=== PATIENT | male | born 1950 | race African-American/Black ===

== ENCOUNTER 2019-08-31 09:08 | Inpatient (IN) | payer OTHER ==
[2019-08-31 09:44] VITALS: BMI 23.0
--- NOTE | 2019-08-31 09:56 | HP ---
CIWA Score Nausea/Vomitin-Mild Nausea/No Vomiting Muscle Tremors: 3 Anxiety: 3 Agitation: 3 Paroxysmal Sweats: 1-Minimal Palms Moist Orientation: 0-Oriented Tacttile Disturbances: 1-Very Mild Itch/Numbness Auditory Disturbances: 0-None Visual Disturbances: 0-None Headache: 2-Mild CIWA-Ar Total Score: 14 - Admission Criteria OASAS Guidelines: Admission for Medically Managed Detox: Requires at least one of the followin. CIWA greater than 12 2. Seizures within the past 24 hours 3. Delirium tremens within the past 24 hours 4. Hallucinations within the past 24 hours 5. Acute intervention needed for co occurring medical disorder 6. Acute intervention needed for co occurring psychiatric disorder 7. Severe withdrawal that cannot be handled at a lower level of care (continued vomiting, continued diarrhea, abnormal vital signs) requiring intravenous medication and/or fluids 8. Admitting History and Physical - Admission Chief Complaint: i need help to stop drinking alcohol and crack History of Present Illness: this 69 years old male with with alcohol and cocaine dependence,seeking detox, had syncope last detox 21 years ago History Source: Patient Limitations to Obtaining History: No Limitations - Past Medical History PROGRESSIVE CARE NURSE: Yes: CVA, Other (in 2001 left ,weakness left leg,ambulation with cane) Cardiovascular: Yes: HTN Gastrointestinal: Yes: Other (left inguinal hernia) Hepatobiliary: Yes: Hepatitis C (has treatment) Renal/: Yes: BPH Infectious Disease: Yes: HIV (since 1985) Musculoskeletal: Yes: Other (arthitis left knee) - Past Surgical History Past Surgical History: Yes: None - Smoking History Smoking history: Current every day smoker Have you smoked in the past 12 months: Yes Aproximately how many cigarettes per day: 4 - Alcohol/Substance Use Hx Alcohol Use: Yes History of Substance Use: reports: Cocaine - Social History Usual Living Arrangement: Yes: Alone ADL: Independent History of Recent Travel: No Other Social History: this 69 years old male with alcohol and coaine dependence, independent,. 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, ambulation with cane,neuropathy,left inguinal hernia,need detox,also hiv Admission ROS [facility] - HPI Chief Complaint: i need help to stop drinking alcohol and cocaine Allergies/Adverse Reactions: Allergies Allergy/AdvReac Type Severity Reaction Status Date / Time No Known Allergies Allergy Verified 12/08/19 09:33 History of Present Illness: this 69 years old male with alcohol and cocaine dependence seeking detox, withdrawal symptom last detox 21 years ago syncope denied seizure old cva with left leg weakness,ambulation with cane hepatitis c treated hiv since 1985 on meds and has own medication and seen pmd regularly neuropathy weight loss Exam Limitations: No Limitations - Ebola screening Have you traveled outside of the country in the last 21 days: No Have you had contact with anyone from an Ebola affected area: No Have you been sick,other than usual withdrawal symptoms: No Do you have a fever: No - Review of Systems Constitutional: Loss of Appetite, Malaise, Night Sweats, Changes in sleep, Unintentional Wgt. Loss EENT: reports: Nose Congestion Respiratory: reports: No Symptoms reported Cardiac: reports: No Symptoms Reported GI: reports: Nausea, Poor Fluid Intake : reports: No Symptoms Reported Musculoskeletal: reports: Back Pain, Muscle Pain Integumentary: reports: Dryness Neuro: reports: Tremors Endocrine: reports: No Symptoms Reported Hematology: reports: No Symptoms Reported (hiv) Psychiatric: reports: No Sypmtoms Reported, Judgement Intact, Mood/Affect Appropiate, Orientated x3 Other Systems: Reviewed and Negative Patient History - Patient Medical History Hx Anemia: No Hx Asthma: No Hx Chronic Obstructive Pulmonary Disease (COPD): No Hx Cancer: No Hx Cardiac Disorders: No Hx Congestive Heart Failure: No Hx Hypertension: Yes Hx Hypercholesterolemia: Yes Hx Pacemaker: No HX Cerebrovascular Accident: Yes (in 2001 with left leg wekness) Hx Seizures: No Hx Dementia: No Hx Diabetes: No Hx Gastrointestinal Disorders: No Hx Liver Disease: Yes (hepatitis ctreated) Hx Genitourinary Disorders: Yes (bph) Hx Sexually Transmitted Disorders: No Hx Renal Disease (ESRD): No Hx Thyroid Disease: No Hx Human Immunodeficiency Virus (HIV): Yes (since 1985) Hx Hepatitis C: Yes (treated) Hx Depression: No Hx Suicide Attempt: No Hx Bipolar Disorder: No Hx Schizophrenia: No Other Medical History: no suicidal no homicidal - Patient Surgical History Past Surgical History: No - PPD History Previous Implant?: Yes Documented Results: Negative w/o proof Implanted On Prior [facility] Admission?: No PPD to be Administered?: Yes - Smoking Cessation Smoking history: Current every day smoker Have you smoked in the past 12 months: Yes Aproximately how many cigarettes per day: 4 Cigars Per Day: 0 Hx Chewing Tobacco Use: No Initiated information on smoking cessation: Yes 'Breaking Loose' booklet given: 08/31/19 - Substance & Tx. History Hx Alcohol Use: Yes Hx Substance Use: Yes Substance Use Type: Alcohol, Tranquilizers Hx Substance Use Treatment: Yes (detox 21 years ago ) - Substances abused Alcohol Substance route: Oral Frequency: Daily Amount used: 1 PINT OF VODKA, Age of first use: 16 Date of last use: 08/30/19 Crack Substance route: Smoking Frequency: Daily Amount used: $50 Age of first use: 31 Date of last use: 08/30/19 Admission Physical Exam [facility] - Vital Signs Vital Signs: Vital Signs - 24 hr 08/31/19 09:28 Temperature 96.6 F L Pulse Rate 79 Respiratory 18 Rate Blood Pressure 149/91 - Physical General Appearance: Yes: Moderate Distress, Tremorous, Irritable, Anxious HEENTM: Yes: Normal ENT Inspection, TIMBO, Pharynx Normal Respiratory: Yes: Lungs Clear, Normal Breath Sounds, No Respiratory Distress Neck: Yes: Within Normal Limits, Supple, Trachea in good position Breast: Yes: Within Normal Limits Cardiology: Yes: Within Normal Limits, Regular Rhythm, Regular Rate, S1, S2 Abdominal: Yes: Within Normal Limits, Normal Bowel Sounds, Non Tender, Flat, Soft, Other (left inguinal hernia size 5x6 cms,direct ,reducible) Back: Yes: Muscle Spasm Extremities: Yes: Tremors 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 (left leg weaknee post cva), Fully Oriented, Alert Integumentary: Yes: Dry Lymphatic: Yes: Within Normal Limits - Diagnostic (1) Alcohol dependence with uncomplicated withdrawal Current Visit: Yes Status: Acute (2) Syncope Current Visit: Yes Status: Acute (3) Cocaine dependence Current Visit: Yes Status: Acute (4) HIV (human immunodeficiency virus infection) Current Visit: Yes Status: Acute (5) Weight loss Current Visit: Yes Status: Acute (6) Hepatitis C virus infection cured after antiviral drug therapy Current Visit: Yes Status: Acute (7) CVA (cerebral vascular accident) Current Visit: Yes Status: Resolved Qualifiers: Laterality of affected vessel: left (8) Direct left inguinal hernia Current Visit: Yes Status: Acute Cleared for Admission [facility] - Detox or Rehab [facility] Level of Care: Medically Managed (for ativan regimen) Inpatient Rehab Admission - Rehab Decision to Admit Inpatient rehab admission?: No
[2019-08-31] MEDS ORDERED: BISMUTH SUBSALICYLATE 524 MG/30 ML UD PO PRN (13:30)
[2019-08-31] MEDS ORDERED: LORazepam 1 MG TABLET PO PRN (13:30)
[2019-08-31] MEDS ORDERED: ACETAMINOPHEN 325 MG TABLET (FP) PO PRN ×2 (13:30)
[2019-08-31] MEDS ORDERED: MELATONIN 5 MG TABLETS PO PRN (13:30)
[2019-08-31] MEDS ORDERED: METHOCARBAMOL 500 MG TABLET PO PRN (13:30)
[2019-08-31] MEDS ORDERED: NICOTINE POLACRILEX 2 MG GUM BUC PRN (13:30)
[2019-08-31] MEDS ORDERED: IBUPROFEN 400 MG TABLET (FP) PO PRN (13:30)
[2019-08-31] MEDS ORDERED: MAG HYDROX/AL HYDROX/SIMETH 30 ML UNIT-DOSE CUP PO PRN (13:30)
[2019-08-31] MEDS ORDERED: hydrOXYzine PAMOATE 25 MG CAPSULE (FP) PO PRN (13:30)
[2019-08-31] MEDS ORDERED: MAGNESIUM CITRATE 300 ML BOTTLE PO PRN (13:30)
[2019-08-31] MEDS ORDERED: MAGNESIUM HYDROX 2400MG/30ML ORAL SUSPENSION 30 ML CUP PO PRN (13:30)
[2019-08-31] MEDS ORDERED: MENTHOL/PHENOL 1 EACH UD MM PRN (13:30)
[2019-08-31] MEDS: LORazepam 2 MG TABLET PO SCH ×2 (18:03→22:39)
[2019-08-31] MEDS: THIAMINE HCL 100 MG TABLET (FP) PO SCH (22:39)
--- NOTE | 2019-09-01 00:11 | PN ---
[facility] Progress Note Note: MD'S NOTE: CALLED AT ABOUT 12:00AM TO SEE THE PT. WHO FELL ON THE FLOOR SUB: HE CLAIMS THAT HE FELT WEAK AND FELL ON THE FLOOR HIT THE HEAD+ OBJ: THE PT. IS CRUZ X 3, NOT DYSPNEIC, NO CYANOSIS, NOT IN DISTRESS V/S: [id number]/111 S/E: IMPLEMENTATION CONSULTANT: NO FOCAL DEFICITS NOTED AT THIS TIME CVS: -JVD, NL HEART SOUNDS, NO MURMURS LUNGS: CLEAR CLINICALLY ABD: SOFT, NT, B.S+ L/E:LEFT EYE BROW REGION: ONE LACERATION OF ABOUT !" NOTED WITH MILD BLEEDING+ IMPRESSION: FALL WITH LACERATED WOUND ON LEFT EYE BROW REGION++ PLANS: FALL PROTOCOL #1 THE PT. WAS SENT TO THE ER. ER-DR. ZEB GAO WAS MADE AWARE OF THE INCIDENT CLOSE MONITORING WILL F/U NEEDED. PROVIDER: ABIGAIL WHITT MD
--- NOTE | 2019-09-01 01:09 | EKG ---
Test Reason : Blood Pressure : / mmHG Vent. Rate : 056 BPM Atrial Rate : 056 BPM P-R Int : 188 ms QRS Dur : 112 ms QT Int : 460 ms P-R-T Axes : -31 -22 -72 degrees QTc Int : 443 ms UNUSUAL P AXIS, POSSIBLE ECTOPIC ATRIAL BRADYCARDIA WITH PREMATURE SUPRAVENTRICULAR COMPLEXES AND WITH OCCASIONAL PREMATURE VENTRICULAR COMPLEXES LEFT VENTRICULAR HYPERTROPHY WITH REPOLARIZATION ABNORMALITY CANNOT RULE OUT SEPTAL INFARCT , AGE UNDETERMINED ABNORMAL ECG NO PREVIOUS ECGS AVAILABLE Confirmed by JARAD NICHOLAS MD ([id number]) on 09/01/2019 1:09:25 AM Referred By: Confirmed By:JARAD NICHOLAS MD
[2019-09-01] MEDS: LORazepam 2 MG TABLET PO SCH ×4 (06:42→22:28)
[2019-09-01] MEDS ORDERED: BICTEGRAV/EMTRICIT/TENOFOV (BIKTARVY) 50-200-25 MG TABLET PO SCH ×2 (08:00→21:45)
[2019-09-01] MEDS: ALBUTEROL SO4 2.5/IPRATROPIUM 0.5 INH SOL 3 ML VIAL.NEB. NEB SCH ×2 (08:30→12:22)
[2019-09-01] MEDS ORDERED: AMLODIPINE BESYLATE 5 MG PO SCH (10:00)
[2019-09-01 10:58] LABS: HEMATOCRIT 38.8 % (35.4-49); HEMOGLOBIN 12.5 GM/dL (11.7-16.9); MCH 27.9 pg (25.7-33.7); MCHC 32.2 g/dl (32.0-35.9); MEAN CELL VOLUME 86.6 fl (80-96); MEAN PLT VOLUME 10.7 fl (7.5-11.1); PLATELET COUNT 187 K/MM3 (134-434); RBC 4.48 M/mm3 (4.00-5.60); WHITE BLOOD COUNT 3.6 K/mm3 (4.0-10.0)
[2019-09-01 11:20] LABS: ALBUMIN 3.7 g/dl (3.4-5.0); BILIRUBIN,TOTAL 0.4 mg/dL (0.2-1); BLOOD UREA NITROGEN 16.9 mg/dL (7-18); CREATININE 1.2 mg/dL (0.55-1.3); POTASSIUM 3.5 mmol/L (3.5-5.1); TOT PROT 9.4 g/dl (6.4-8.2)
[2019-09-01] MEDS: predniSONE 5 MG TABLET (UD) PO SCH (11:30)
[2019-09-01] MEDS: PRENATAL VITAMINS W/ FOLIC ACID TABLET (FP) PO SCH (11:30)
[2019-09-01] MEDS: amLODIPine BESYLATE 5 MG TABLET (FP) PO SCH (11:30)
[2019-09-01] MEDS: SULFAMETHOXAZOLE/TRIMETHOPRIM 800MG/160MG D.S. TABLET PO SCH (11:30)
--- NOTE | 2019-09-01 11:30 | PN ---
S CIWA - CIWA Score Nausea/Vomitin-Mild Nausea/No Vomiting Muscle Tremors: 2 Anxiety: 2 Agitation: 2 Paroxysmal Sweats: No Perspiration Orientation: 0-Oriented Tacttile Disturbances: 0-None Auditory Disturbances: 0-None Visual Disturbances: 0-None Headache: 0-None Present CIWA-Ar Total Score: 7 S Progress Note (SOAP) Subjective: alert,interrupted sleep,pain in the body,has history of fall last [facility],had at of head and chest xray done Objective: 09/01/19 11:28 Vital Signs Temperature 97.9 F 09/01/19 11:22 Pulse Rate 88 09/01/19 11:22 Respiratory Rate 18 09/01/19 11:22 Blood Pressure 116/75 09/01/19 11:22 O2 Sat by Pulse Oximetry (%) 09/01/19 11:28 Laboratory Last Values Sodium 143 mmol/L (136-145) 09/01/19 07:50 Potassium 3.5 mmol/L (3.5-5.1) 09/01/19 07:50 Chloride 102 mmol/L (98-107) 09/01/19 07:50 Carbon Dioxide 35 mmol/L (21-32) H 09/01/19 07:50 Anion Gap 6 MMOL/L (8-16) L 09/01/19 07:50 BUN 16.9 mg/dL (7-18) 09/01/19 07:50 Creatinine 1.2 mg/dL (0.55-1.3) 09/01/19 07:50 Est GFR (CKD-EPI)AfAm 71.58 09/01/19 07:50 Est GFR (CKD-EPI)NonAf 61.76 09/01/19 07:50 Random Glucose 97 mg/dL (74-106) 09/01/19 07:50 Calcium 10.0 mg/dL (8.5-10.1) 09/01/19 07:50 Total Bilirubin 0.4 mg/dL (0.2-1) 09/01/19 07:50 AST 19 U/L (15-37) 09/01/19 07:50 ALT 19 U/L (13-61) 09/01/19 07:50 Alkaline Phosphatase 103 U/L (45-117) 09/01/19 07:50 Total Protein 9.4 g/dl (6.4-8.2) H 09/01/19 07:50 Albumin 3.7 g/dl (3.4-5.0) 09/01/19 07:50 other labs pending Assessment: 09/01/19 11:29 withdrawal symptom Plan: continue detox ativan regimen,post fall protocol 1 monitoring
[2019-09-01 11:54] LABS: SICKLE CELL SCREEN NEGATIVE (NEGATIVE)
[2019-09-01] MEDS: THIAMINE HCL 100 MG TABLET (FP) PO SCH (22:28)
[2019-09-02] MEDS: LORazepam 1 MG TABLET PO SCH ×4 (05:52→22:21)
--- NOTE | 2019-09-02 10:15 | PN ---
S CIWA - CIWA Score Nausea/Vomitin-Mild Nausea/No Vomiting Muscle Tremors: 1-None Visible, but [place] Anxiety: 2 Agitation: 2 Paroxysmal Sweats: No Perspiration Orientation: 0-Oriented Tacttile Disturbances: 1-Very Mild Itch/Numbness Auditory Disturbances: 0-None Visual Disturbances: 0-None Headache: 1-Very Mild CIWA-Ar Total Score: 8 [facility] Progress Note (SOAP) Subjective: alert,anxious,interrupted sleep,pain in the body Objective: 09/02/19 10:12 Vital Signs Temperature 97.5 F L 09/02/19 09:15 Pulse Rate 75 09/02/19 09:15 Respiratory Rate 18 09/02/19 09:15 Blood Pressure 136/90 09/02/19 09:15 O2 Sat by Pulse Oximetry (%) Laboratory Results - last 24 hr 09/01/19 09/01/19 09/01/19 07:50 07:50 07:50 WBC 3.6 L RBC 4.48 Hgb 12.5 Hct 38.8 MCV 86.6 MCH 27.9 MCHC 32.2 RDW 16.0 H Plt Count 187 MPV 10.7 Sickle Cell Screen Negative Sodium 143 Potassium 3.5 Chloride 102 Carbon Dioxide 35 H Anion Gap 6 L BUN 16.9 Creatinine 1.2 Est GFR (CKD-EPI)AfAm 71.58 Est GFR (CKD-EPI)NonAf 61.76 Random Glucose 97 Calcium 10.0 Total Bilirubin 0.4 AST 19 ALT 19 Alkaline Phosphatase 103 Total Protein 9.4 H Albumin 3.7 RPR Titer Nonreactive Assessment: 09/02/19 10:13 withdrawal symptom Plan: continue detox ativan regimen,discharge in am
[2019-09-02] MEDS: predniSONE 5 MG TABLET (UD) PO SCH (10:18)
[2019-09-02] MEDS: amLODIPine BESYLATE 5 MG TABLET (FP) PO SCH (10:18)
[2019-09-02] MEDS: PRENATAL VITAMINS W/ FOLIC ACID TABLET (FP) PO SCH (10:18)
[2019-09-02] MEDS: SULFAMETHOXAZOLE/TRIMETHOPRIM 800MG/160MG D.S. TABLET PO SCH (10:18)
--- NOTE | 2019-09-02 12:00 | PN ---
[facility] Progress Note Note: informed by nurse that patient has witness fall no head injury no loss of conscious stated he is fine,no injury noted t96.6,p73,r18,bp 148/95 no complaint treatment initiate fall protocol 2 fall precaution close monitoring
[2019-09-02] MEDS: ALBUTEROL SO4 2.5/IPRATROPIUM 0.5 INH SOL 3 ML VIAL.NEB. NEB SCH ×2 (17:47→22:23)
[2019-09-02] MEDS: THIAMINE HCL 100 MG TABLET (FP) PO SCH (21:36)
[2019-09-03] MEDS ORDERED: LORazepam 0.5 MG TABLET PO PRN
[2019-09-03] MEDS: LORazepam 0.5 MG TABLET PO SCH ×2 (06:13→10:13)
--- NOTE | 2019-09-03 08:37 | DS ---
[facility] Detox Discharge Summary Admission Date: 08/31/19 Discharge Date: 09/03/19 - History Present History: Alcohol Dependence, Cocaine Dependence - Physical Exam Results Vital Signs: Vital Signs Temperature 96.2 F L 09/03/19 07:50 Pulse Rate 74 09/03/19 07:50 Respiratory Rate 18 09/03/19 07:50 Blood Pressure 134/79 09/03/19 07:50 O2 Sat by Pulse Oximetry (%) Pertinent Admission Physical Exam Findings: Vital Signs Temperature 96.2 F L 09/03/19 07:50 Pulse Rate 74 09/03/19 07:50 Respiratory Rate 18 09/03/19 07:50 Blood Pressure 134/79 09/03/19 07:50 O2 Sat by Pulse Oximetry (%) Laboratory Tests 09/01/19 09/01/19 09/01/19 07:50 07:50 07:50 WBC 3.6 L RBC 4.48 Hgb 12.5 Hct 38.8 MCV 86.6 MCH 27.9 MCHC 32.2 RDW 16.0 H Plt Count 187 MPV 10.7 Sickle Cell Screen Negative Sodium 143 Potassium 3.5 Chloride 102 Carbon Dioxide 35 H Anion Gap 6 L BUN 16.9 Creatinine 1.2 Est GFR (CKD-EPI)AfAm 71.58 Est GFR (CKD-EPI)NonAf 61.76 Random Glucose 97 Calcium 10.0 Total Bilirubin 0.4 AST 19 ALT 19 Alkaline Phosphatase 103 Total Protein 9.4 H Albumin 3.7 RPR Titer Nonreactive aaox3 ambulating no acute distress - Treatment Hospital Course: Detox Protocol Followed, Detoxed Safely, Responded well, Discharged Condition Good, Rehab Referral Accepted Patient has Accepted a Rehab Referral to: pt referred to [facility] inpatient rehab - Medication Discharge Medications: Ambulatory Orders Acetaminophen [Mapap] 500 mg PO Q6H PRN 08/31/19 Amlodipine Besylate 5 mg PO DAILY 08/31/19 Bictegrav/Emtricit/Tenofov Ala [Biktarvy 50-200-25 mg Tablet] 1 each PO DAILY Oxybutynin Chloride [Oxybutynin Chloride ER] 30 mg PO DAILY 08/31/19 Sulfamethoxazole/Trimethoprim [Sulfamethoxazole-Tmp Ds Tablet] 1 each PO DAILY 08/31/19 predniSONE [Deltasone -] 5 mg PO DAILY 08/31/19 - Diagnosis (1) Alcohol dependence with uncomplicated withdrawal Current Visit: Yes Status: Chronic (2) Cocaine dependence Current Visit: Yes Status: Chronic Qualifiers: Substance use status: uncomplicated Qualified Code(s): F14.20 - Cocaine dependence, uncomplicated (3) Direct left inguinal hernia Current Visit: Yes Status: Acute (4) HIV (human immunodeficiency virus infection) Current Visit: Yes Status: Acute (5) Hepatitis C virus infection cured after antiviral drug therapy Current Visit: Yes Status: Acute (6) Syncope Current Visit: Yes Status: Acute (7) Weight loss Current Visit: Yes Status: Acute (8) Head injury due to trauma Current Visit: No Status: Acute Qualifiers: Encounter type: initial encounter Qualified Code(s): S09.90XA - Unspecified injury of head, initial encounter - AMA Did Patient Leave Against Medical Advice: No
[2019-09-03] MEDS: amLODIPine BESYLATE 5 MG TABLET (FP) PO SCH (10:13)
[2019-09-03] MEDS: SULFAMETHOXAZOLE/TRIMETHOPRIM 800MG/160MG D.S. TABLET PO SCH (10:13)
[2019-09-03] MEDS: PRENATAL VITAMINS W/ FOLIC ACID TABLET (FP) PO SCH (10:13)
[2019-09-03] MEDS: ALBUTEROL SO4 2.5/IPRATROPIUM 0.5 INH SOL 3 ML VIAL.NEB. NEB SCH ×2 (10:55→14:54)
[2019-09-03 12:02] VITALS: PULSE 76
[2019-09-03] MEDS: predniSONE 5 MG TABLET (UD) PO SCH (12:54)
[2019-09-03 14:19] VITALS: BP 132/77; TEMP 98.6
[2019-09-04] MEDS ORDERED: LORazepam 0.5 MG TABLET PO ONE (05:00)
== END 2019-09-03 15:50 | disposition home or self-care (01) | DRG 897 ==
LOC: YASAS 09:08 → Y6N 13:59
PROVIDERS: ADMIT Allergy & Immunology; ATTEND Allergy & Immunology
PROC: HZ2ZZZZ Detoxification Services for Substance Abuse Treatment (ICD-10-PCS; principal; 2019-08-31)
DX: F10.230 Alcohol dependence with withdrawal, uncomplicated (principal); F14.20 Cocaine dependence, uncomplicated; I69.854 Hemiplegia and hemiparesis following other cerebrovascular disease affecting left non-dominant side; F17.210 Nicotine dependence, cigarettes, uncomplicated; Z21 Asymptomatic human immunodeficiency virus [HIV] infection status; I10 Essential (primary) hypertension; G62.9 Polyneuropathy, unspecified; E78.00 Pure hypercholesterolemia, unspecified; K40.90 Unilateral inguinal hernia, without obstruction or gangrene, not specified as recurrent; R55 Syncope and collapse; M17.12 Unilateral primary osteoarthritis, left knee; N40.0 Benign prostatic hyperplasia without lower urinary tract symptoms; R63.4 Abnormal weight loss; Z68.23 Body mass index [BMI] 23.0-23.9, adult; S09.8XXA Other specified injuries of head, initial encounter; W19.XXXA Unspecified fall, initial encounter; Y93.89 Activity, other specified; Y92.238 Other place in hospital as the place of occurrence of the external cause; Y99.8 Other external cause status; Z99.89 Dependence on other enabling machines and devices
CPT/HCPCS: 36415; 80053; 85027; 85660; 86593; 93005; 93010; 94640

== ENCOUNTER 2019-09-01 00:55 | Emergency (ER) | payer OTHER ==
[2019-09-01 01:15] VITALS: BP 154/92; PULSE 62; TEMP 97.9; BMI 23.7
--- NOTE | 2019-09-01 01:15 | PDOC ---
History of Present Illness - General Chief Complaint: Injury Stated Complaint: FALL Time Seen by Provider: 09/01/19 01:14 History Source: Patient Exam Limitations: No Limitations - History of Present Illness Initial Comments: 09/01/19 01:26 Dank Sam is a 69yM w PMHx CVA, hep C, HIV, cocaine/alcohol abuse presenting from [facility] w face laceration s/p witnessed mechanical fall. Sustained 4cm laceration over L eyebrow. Ambulated after incident. Doesnt remember last tetanus shot. Denies headache, vision change, nausea/vomiting, SOB , chest/AB pain. Past History - Past Medical History Allergies/Adverse Reactions: Allergies Allergy/AdvReac Type Severity Reaction Status Date / Time No Known Allergies Allergy Verified 08/31/19 09:33 Home Medications: Ambulatory Orders Acetaminophen [Mapap] 500 mg PO Q6H PRN 08/31/19 Amlodipine Besylate 5 mg PO DAILY 08/31/19 Bictegrav/Emtricit/Tenofov Ala [Biktarvy 50-200-25 mg Tablet] 1 each PO DAILY Oxybutynin Chloride [Oxybutynin Chloride ER] 30 mg PO DAILY 08/31/19 Sulfamethoxazole/Trimethoprim [Sulfamethoxazole-Tmp Ds Tablet] 1 each PO DAILY 08/31/19 predniSONE [Deltasone -] 5 mg PO DAILY 08/31/19 Anemia: No Asthma: No Cancer: No Cardiac Disorders: No CVA: Yes (in 2001 with left leg wekness) COPD: No CHF: No Dementia: No Diabetes: No GI Disorders: No Disorders: Yes (bph) HTN: Yes Hypercholesterolemia: Yes Kidney Stones: No Liver Disease: Yes (hepatitis ctreated) Seizures: No Thyroid Disease: No - Surgical History Abdominal Surgery: No Appendectomy: No Cardiac Surgery: No Cholecystectomy: No Lung Surgery: No Neurologic Surgery: No Orthopedic Surgery: No - Reproductive History Testicular Surgery: No - Psycho Social/Smoking Cessation Hx Smoking History: Current every day smoker Have you smoked in the past 12 months: Yes Number of Cigarettes Smoked Daily: 4 Cigars Per Day: 0 'Breaking Loose' booklet given: 08/31/19 Hx Alcohol Use: Yes Drug/Substance Use Hx: Yes Substance Use Type: Alcohol, Tranquilizers Hx Substance Use Treatment: Yes (detox 21 years ago ) Trauma Specific PMHX - Complaint Specific PMHX Arthritis: No Review of Systems - Review of Systems Constitutional: No: Chills, Fever HEENTM: Yes: Eye Pain. No: Recent change in vision, Nose Pain, Throat Pain, Mouth Pain Respiratory: No: Cough, Shortness of Breath Cardiac (ROS): No: Chest Pain, Palpitations ABD/GI: No: Abdominal Distended, Nausea, Vomiting Musculoskeletal: No: Back Pain, Neck Pain Integumentary: No: Bruising, Change in Color Neurological: No: Headache, Seizure, Tingling, Tremors Psychiatric: No: Anxiety, Depression Endocrine: No: Excessive Sweating, Flushing Hematologic/Lymphatic: No: Anemia, Blood Clots *Physical Exam - Physical Exam General Appearance: Yes: Nourished, Appropriately Dressed. No: Apparent Distress HEENT: positive: EOMI, TIMBO, Normal Voice, Hearing Grossly Normal, Other (3.5cm laceration over L eyebrow, slow bleeding). negative: Scleral Icterus (R), Scleral Icterus (L), Nasal Congestion, Rhinorrhea Neck: positive: Supple. negative: Tender, Rigid Respiratory/Chest: positive: Lungs Clear, Normal Breath Sounds. negative: Chest Tender, Respiratory Distress, Crackles, Rales, Rhonchi, Stridor, Wheezing Cardiovascular: positive: Regular Rhythm, Regular Rate, S1, S2. negative: Edema , Murmur Gastrointestinal/Abdominal: positive: Soft, Distended. 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 negative: Sensory Deficit, Confused, Disoriented Procedures - Laceration/Wound Repair Left Anterior Face Wound Length: 2.6 to 5.0 cm Wound Explored: clean, no foreign body present Wound's Depth, Shape: superficial Irrigated w/ Saline: Yes Betadine Prep: No Anesthesia: 1% Lidocaine Amount of Anesthetic (ccs): 1 Wound Debrided: minimal Wound Repaired With: Sutures Suture Size/Type: 6:0 Number of Sutures: 3 Layer Closure: No Number of Deep Layer Sutures: 0 Sterile Dressing Applied: No Splint Applied: No Sling Applied: No Medical Decision Making - Medical Decision Making 09/01/19 03:54 Dank Sam is a 69yM w PMHx CVA, hep C, HIV, cocaine/alcohol abuse presenting from [facility] w face laceration s/p witnessed mechanical fall. Neuro intact. Head CT did not show acute bleed/infarct/mass. Face laceration sutured w 3x 6'0 Nylon. DC home w suture care instructions, come back for suture removal. Discharge - Discharge Information Problems reviewed: Yes Clinical Impression/Diagnosis: Head injury due to trauma Qualifiers: Encounter type: initial encounter Qualified Code(s): S09.90XA - Unspecified injury of head, initial encounter Condition: Good Disposition: HOME - Admission No - Follow up/Referral - Patient Discharge Instructions Patient Printed Discharge Instructions: DI for Laceration Repair of the Scalp Additional Instructions: You were seen for head injury after a fall. Your imaging did not show anything concerning. Your laceration was stitched together and you were given a tetanus shot Keep the laceration dry for the next 24 hours. After 24 hours, you can clean the wound with warm water and soap. Come back to the ED in 10 days to have the 3 stitches removed. Come back to the ED if you have worsening headache, vomiting, or confusion. - Post Discharge Activity
--- NOTE | 2019-09-01 01:46 | PDOC ---
Documentation entered by Chandan Cobb SCRIBE, acting as scribe for Nafisa Monahan MD. Nafisa Monahan MD: This documentation has been prepared by the Reza starkey Nirvannie, SCRIBE, under my direction and personally reviewed by me in its entirety. I confirm that the documentation accurately reflects all work, treatment, procedures, and medical decision making performed by me. Attending Attestation - Resident Resident Name: Gini,Jaren - ED Attending Attestation I have performed the following: I have examined & evaluated the patient, The case was reviewed & discussed with the resident, I agree w/resident's findings & plan - HPI HPI: 09/01/19 01:44 The patient is a 69 year old male, with a significant past medical history of HTN, CVA, Hepatitis C(treated), HIV, BPH, and polysubstance abuse (cocaine and alcohol), who presents to the emergency department s/p witnessed fall. Allergies: NKDA 09/01/19 02:12 - Physicial Exam PE: 09/01/19 01:51 GENERAL: No apparent distress. HEENT: +V-shaped laceration over the left eyebrow with small hematoma. CARDIOVASCULAR: Normal S1, S2. Regular rate and rhythm. PULMONARY: Clear to auscultation bilaterally. ABDOMEN: Soft, non-distended, non-tender. EXTREMITIES: Normal ROM in all four extremities. No gross deformities. SKIN: Warm, dry. No rash NEUROLOGICAL: +Slightly lethargic but responds to all commands. Strength 5/5, moves all extremities. - Medical Decision Making 09/01/19 02:01 Plan CAT scan imaging/wound repair 09/01/19 02:11
[2019-09-01] MEDS ORDERED: DIPHTH,PERTUSS(ACELL),TET 0.5 ML DISP.SYRIN IM ONE ×2 (03:10→03:15)
== END 2019-09-01 04:29 | disposition home or self-care (01) ==
LOC: JER 00:55
PROC: 3E0234Z Introduction of Serum, Toxoid and Vaccine into Muscle, Percutaneous Approach (ICD-10-PCS; principal; 2019-09-01)
PROC: 0HQ1XZZ Repair Face Skin, External Approach (ICD-10-PCS; 2019-09-01)
DX: S01.112A Laceration without foreign body of left eyelid and periocular area, initial encounter (principal); W18.39XA Other fall on same level, initial encounter; Y93.89 Activity, other specified; Y92.238 Other place in hospital as the place of occurrence of the external cause; Y99.8 Other external cause status; N40.0 Benign prostatic hyperplasia without lower urinary tract symptoms; Z86.19 Personal history of other infectious and parasitic diseases; B18.2 Chronic viral hepatitis C; Z21 Asymptomatic human immunodeficiency virus [HIV] infection status; I69.844 Monoplegia of lower limb following other cerebrovascular disease affecting left non-dominant side; F10.10 Alcohol abuse, uncomplicated; F14.10 Cocaine abuse, uncomplicated; F17.210 Nicotine dependence, cigarettes, uncomplicated
CPT/HCPCS: 12013; 70450-TC; 71045-TC-FY; 90471; 90715; 99283-25